=== PATIENT | male | born 1965 | race Two or more races ===

== ENCOUNTER 2022-07-21 10:16 | Emergency (ER) | payer MEDICARE, OTHER ==
[~2022-07-21] VITALS: Ht 157.5 cm; Wt 65.8 kg
[2022-07-21 10:33] VITALS: BP 118/79
--- NOTE | 2022-07-21 10:34 | NUR ---
To ER bed 10, c/o urinary frequency x 2 weeks, denies pain, aaox3, breathing even and non labored, awaiting md bales
--- NOTE | 2022-07-21 11:06 | NUR ---
URINE COLLECTED AND SENT TO LAB
[2022-07-21 12:02] LABS: BILIRUBIN,URINE NEGATIVE (NEGATIVE); COLOR,URINE YELLOW (YELLOW); LEUKOCYTE ESTERASE ,URINE NEGATIVE (NEGATIVE); NITRITE, URINE NEGATIVE (NEGATIVE); PROTEIN,URINE TRACE mg/dl (NEGATIVE); UGLUCOSE NEGATIVE (NEGATIVE); UROBILINOGEN,URINE 0.2 EU/dL (0.2)
[2022-07-21 12:24] LABS: BACTERIA,URINE Rare /HPF (None Seen); RBC,URINE 0-2 /HPF (0-2); SQUAMOUS EPITHELIAL CELL,UR 0-2 /HPF (None Seen); WBC,URINE NONE SEEN /HPF (0-3)
--- NOTE | 2022-07-21 12:57 | NUR ---
Patient discharged to home in stable condition. Written and verbal after care instructions given. Patient verbalizes understanding of instruction.
== END 2022-07-21 12:59 | disposition home or self-care (01) ==
LOC: ER 10:45
DX: R35.0 Frequency of micturition (principal); E11.9 Type 2 diabetes mellitus without complications
CPT/HCPCS: 81001; 87086-TC